=== PATIENT | male | born 1990 | race African-American/Black ===

== ENCOUNTER 2019-08-29 18:01 | Emergency (ER) | payer OTHER ==
[~2019-08-29] VITALS: Ht 195.6 cm; Wt 104.3 kg
[~2019-08-29 18:01] MED LIST: FLEXERIL PO; NOHOMEMEDICATIONS; NORCO 5-325 TA1 EACH PO
[2019-08-29 19:09] VITALS: BP 125/68
== END 2019-08-29 19:16 | disposition home or self-care (01) ==
LOC: ER 18:01
DX: S76.112A Strain of left quadriceps muscle, fascia and tendon, initial encounter (principal); Z98.890 Other specified postprocedural states; Z79.899 Other long term (current) drug therapy; X50.1XXA Overexertion from prolonged static or awkward postures, initial encounter; Y93.89 Activity, other specified; Y92.89 Other specified places as the place of occurrence of the external cause; Y99.8 Other external cause status